=== PATIENT | female | born 1975 | race African-American/Black ===

== ENCOUNTER 2020-06-01 15:37 | Inpatient (IN) | payer MEDICAID ==
[~2020-06-01] VITALS: Ht 167.6 cm; Wt 65.8 kg
[2020-06-01] MEDS ORDERED: MORPHINE SULFATE 4 MG/ML CPJ (NOT FOR IM USE) IV STA (16:50)
[2020-06-01] MEDS ORDERED: SODIUM CHLORIDE 0.9% 1,000 ML IV ONE ×2 (16:50→21:30)
[2020-06-01] MEDS ORDERED: ONDANSETRON HCL 4MG/2ML INJ IV STA (16:50)
[2020-06-01 17:28] LABS: HEMATOCRIT. 27.7 % (36.0-48.0); HEMOGLOBIN. 8.3 g/dL (12.0-16.0); MEAN CORPUSCULAR HEMOGLOBIN 18.2 pg (28.0-32.0); MEAN CORPUSCULAR VOLUME 60.7 fL (81.0-99.0); MEAN PLATELET VOLUME 8.4 fl (7.4-10.4); PLATELET 191 x1000/uL (130-400); RED BLOOD CELL COUNT 4.56 mill/uL (4.2-5.4); RED CELL DISTRIBUTION WIDTH 21.9 % (11.6-14.6)
[2020-06-01 17:29] LABS: CHLORIDE 112 mEq/L (98-107)
[2020-06-01 17:32] LABS: PROTHROMBIN TIME 10.4 sec (9.6-11.0)
[2020-06-01 17:33] LABS: ETHANOL BLOOD < 10 mg/dL
[2020-06-01 18:02] LABS: HCG SCREEN NEGATIVE
[2020-06-01 18:44] LABS: CLARITY URINE TURBID (CLEAR); COLOR URINE YELLOW (YELLOW); KETONES URINE 1+ (NEGATIVE); LEUKOCYTE ESTERASE URINE NEGATIVE (NEGATIVE); NITRITE URINE NEGATIVE (NEGATIVE); OCCULT BLOOD URINE NEGATIVE (NEGATIVE); PROTEIN URINE TRACE (NEGATIVE); SPECIFIC GRAVITY URINE 1.019 (1.005-1.030); UROBILINOGEN URINE 0.2 E.U./dL (0.2-1.0)
[2020-06-01 18:50] LABS: PLATELET ESTIMATE NORMAL
[2020-06-01 19:04] LABS: *AMPHETAMINES SCREEN URINE NEGATIVE (NEGATIVE); *BARBITURATES SCREEN URINE NEGATIVE (NEGATIVE); *BENZODIAZEPINES SCREEN URINE NEGATIVE (NEGATIVE)
[2020-06-01 19:06] LABS: METHADONE URINE SCREEN NEGATIVE (NEGATIVE); OPIATES URINE SCREEN NEGATIVE (NEGATIVE); PHENCYCLIDINE URINE SCREEN NEGATIVE (NEGATIVE)
[2020-06-01 19:10] LABS: *COCAINE SCREEN URINE PRESUMTIVE POSITIVE (NEGATIVE); CANNABINOID URINE SCREEN PRESUMTIVE POSITIVE (NEGATIVE)
[2020-06-01] MEDS ORDERED: ONDANSETRON HCL 4MG/2ML INJ IV ONE (21:30)
[2020-06-01] MEDS ORDERED: MORPHINE SULFATE 4 MG/ML CPJ (NOT FOR IM USE) IV ONE (21:30)
[2020-06-01] MEDS ORDERED: MAGNESIUM/ALUMINUM HYDROXIDE/SIMETHICONE 30ML UDC PO PRN (23:30)
[2020-06-01] MEDS ORDERED: ONDANSETRON HCL 4MG/2ML INJ IV PRN (23:30)
[2020-06-01] MEDS ORDERED: ACETAMINOPHEN 325MG TABLET PO PRN (23:30)
[2020-06-01] MEDS ORDERED: KETOROLAC 15MG/ML VIAL IV PRN (23:30)
[2020-06-01] MEDS ORDERED: CLONIDINE 0.1MG TABLET PO PRN (23:30)
[2020-06-01] MEDS ORDERED: IOHEXOL-300 100 ML BOTTLE ONE (23:32)
[2020-06-02] VITALS: BP 110/66
[2020-06-02] MEDS ORDERED: DEXT 5%/0.45% NACL 1000ML 1,000 ML IV SCH (00:29)
[2020-06-02 00:49] VITALS: BP 136/75
[2020-06-02] MEDS ORDERED: OMEP10CA5 PO (01:03)
[2020-06-02] MEDS ORDERED: ANAS1TAB49 PO (01:04)
[2020-06-02 04:00] VITALS: BP 99/42
[2020-06-02 07:00] LABS: CHLORIDE 110 mEq/L (98-107)
[2020-06-02 07:56] LABS: BASOPHILS % 1.3 % (0.0-2.0); EOSINOPHILS % 0.9 % (0.0-5.0); HEMATOCRIT. 26.1 % (36.0-48.0); HEMOGLOBIN. 7.7 g/dL (12.0-16.0); LYMPHOCYTES % 20.5 % (20.0-50.0); MEAN CORPUSCULAR HEMOGLOBIN 17.6 pg (28.0-32.0); MEAN CORPUSCULAR VOLUME 59.8 fL (81.0-99.0); MEAN PLATELET VOLUME 8.8 fl (7.4-10.4); NEUTROPHILS % 69.3 % (40.0-76.0); PLATELET 186 x1000/uL (130-400); RED BLOOD CELL COUNT 4.36 mill/uL (4.2-5.4)
[2020-06-02 08:00] VITALS: BP 126/67
[2020-06-02] MEDS: PANTOPRAZOLE SODIUM 40 MG/VIAL IV SCH ×2 (09:00→09:28)
[2020-06-02] MEDS ORDERED: POTASSIUM CHLORIDE 20MEQ TABLET SR PO SCH (11:00)
[2020-06-02 11:04] VITALS: BP_SYST 117; BP_SYST 126; BP_DIAS 67; BP_DIAS 73
[2020-06-02 12:00] VITALS: BP 117/73
== END 2020-06-02 14:09 | disposition home or self-care (01) | DRG 241 ==
LOC: ER 15:37 → 6EST 21:50 → EDBEDREQ 21:55 → EDBEDREQTM 21:55 → CANRESERV 22:35 → ENRESERV 22:35 → EDBEDREQSVC 23:39 → ENRESERV 23:48
PROVIDERS: ADMIT Hospitalist; ATTEND Hospitalist
DX: K29.70 Gastritis, unspecified, without bleeding (principal); F19.10 Other psychoactive substance abuse, uncomplicated; D63.8 Anemia in other chronic diseases classified elsewhere; D25.9 Leiomyoma of uterus, unspecified; Z88.0 Allergy status to penicillin; Z79.899 Other long term (current) drug therapy; E86.0 Dehydration; E88.89 Other specified metabolic disorders; F17.200 Nicotine dependence, unspecified, uncomplicated; F12.90 Cannabis use, unspecified, uncomplicated
CPT/HCPCS: 36415; 71045; 74177; 80053; 80305; 80320; 81003; 83605; 84703; 85025; 93005; 93970; 96374; 99285; C9113; J1885; J2405; J7030; Q9967; G0480